=== PATIENT | female | born 1960 | race American Indian/Alaskan Native ===

== ENCOUNTER 2020-01-05 00:14 | Emergency (ER) | payer MEDICARE ==
[2020-01-05 01:40] LABS: Basophils # (Auto) 0.1 K/mm3 (0.0-0.1); Basophils % (Auto) 0.8 % (0.0-1.8); Eosinophils # (Auto) 0.3 K/mm3 (0.0-0.4); Eosinophils % (Auto) 4.6 % (0.0-4.3); Hemoglobin 14.2 gm/dl (10.1-14.3); Lymphocytes # (Auto) 2.7 K/mm3 (1.2-5.4); Lymphocytes % (Auto) 40.9 % (13.4-35.0); Mean Corpuscular HGB Conc 36 % (30-34); Mean Corpuscular Volume 97 fl (79-97); Monocytes # (Auto) 0.5 K/mm3 (0.0-0.8); Monocytes % (Auto) 6.8 % (0.0-7.3); Platelet Count 163 K/mm3 (140-440); Red Blood Count 4.11 M/mm3 (3.65-5.03); Red Cell Distribution Width 13.7 % (13.2-15.2)
[2020-01-05 02:05] LABS: Alanine Aminotransferase 11 units/L (7-56); Albumin 3.9 g/dL (3.9-5); BUN/Creatinine Ratio 21; Blood Urea Nitrogen 15 mg/dL (7-17); Calcium 8.9 mg/dL (8.4-10.2); Hemolysis Index 14
--- NOTE | 2020-01-05 02:26 | Emergency Department Report ---
ED Abdominal Pain HPI - General Chief Complaint: Abdominal Pain Stated Complaint: BLOOD IN URINE Time Seen by Provider: 01/05/20 02:22 Source: patient, EMS Mode of arrival: Wheelchair Limitations: No Limitations - History of Present Illness Initial Comments: Patient is a 60-year-old female that presents emergency room with complaints of abdominal pain and blood in her urine. Patient states she went to urgent care today and they sent her here for evaluation. Patient states that the pain in the blood started yesterday morning. Patient states that the pain is worsening. Patient states the abdominal pain is a 10 out of 10. Patient denies fever. Patient denies chills. Patient denies dysuria. Patient denies back pain. Patient states she has had a partial hysterectomy, kidney stones and gallstones. MD Complaint: abdominal pain -: Sudden Location: LLQ, RLQ Radiation: none Migration to: no migration Severity: severe Severity scale (0 -10): 10 Quality: stabbing Improves With: rest Worsens With: movement Associated Symptoms: denies: nausea, vomiting, diarrhea, fever, chills, constipation, dysuria, hematemesis, hematochezia, melena, hematuria, syncope - Related Data LMP (females 10-50): unknown Previous Rx's Medication Instructions Recorded Last Taken Type Sulfamethoxazole/Trimethoprim 1 each PO BID 10 Days #20 tablet 01/05/20 Unknown Rx [Bactrim DS TAB] Allergies Allergy/AdvReac Type Severity Reaction Status Date / Time ibuprofen [From Motrin] Allergy Swelling Verified 01/05/20 00:47 ED Review of Systems ROS: Stated complaint: BLOOD IN URINE Other details as noted in HPI Constitutional: denies: chills, fever Eyes: denies: eye pain, eye discharge, vision change ENT: denies: ear pain, throat pain Respiratory: denies: cough, shortness of breath, wheezing Cardiovascular: denies: chest pain, palpitations Endocrine: no symptoms reported Gastrointestinal: abdominal pain. denies: nausea, diarrhea Genitourinary: hematuria. denies: urgency, dysuria, discharge Musculoskeletal: denies: back pain, joint swelling, arthralgia Skin: denies: rash, lesions Neurological: denies: headache, weakness, paresthesias Psychiatric: denies: anxiety, depression Hematological/Lymphatic: denies: easy bleeding, easy bruising ED Past Medical Hx - Past Medical History Previous Medical History?: Yes Hx Hypertension: Yes Hx Seizures: Yes Hx Psychiatric Treatment: Yes (bipolar, schizophrenia) Hx HIV: Yes - Surgical History Past Surgical History?: Yes Additional Surgical History: partial hysterectomy 1987. kidney stone. gallstone. L foot sx x6 - Family History Family history: no significant - Social History Smoking Status: Light Tobacco Smoker Substance Use Type: None - Medications Home Medications: Home Medications Medication Instructions Recorded Confirmed Last Taken Type Sulfamethoxazole/Trimethoprim 1 each PO BID 10 Days #20 tablet 01/05/20 Unknown Rx [Bactrim DS TAB] ED Physical Exam - General Limitations: No Limitations General appearance: alert, in no apparent distress - Head Head exam: Present: atraumatic, normocephalic - Eye Eye exam: Present: normal appearance - ENT ENT exam: Present: mucous membranes moist - Neck Neck exam: Present: normal inspection - Respiratory Respiratory exam: Present: normal lung sounds bilaterally. Absent: respiratory distress - Cardiovascular Cardiovascular Exam: Present: regular rate, normal rhythm. Absent: systolic murmur, diastolic murmur, rubs, gallop - GI/Abdominal GI/Abdominal exam: Present: soft, tenderness (Bilateral lower quadrant tenderness), normal bowel sounds - Extremities Exam Extremities exam: Present: normal inspection - Back Exam Back exam: Present: normal inspection - Neurological Exam Neurological exam: Present: alert, oriented X3 - Psychiatric Psychiatric exam: Present: normal affect, normal mood - Skin Skin exam: Present: warm, dry, intact, normal color. Absent: rash ED Course Vital Signs 01/05/20 01/05/20 00:20 06:01 Temperature 98.3 F Pulse Rate 60 60 Respiratory 19 16 Rate Blood Pressure 127/67 Blood Pressure 138/74 [Right] O2 Sat by Pulse 95 97 Oximetry - Reevaluation(s) Reevaluation #1: I discussed all results and clinical findings with patient. I discussed plan of care with patient. Patient agrees with plan of care. Patient is stable for discharge. Patient will be discharged home. Patient given discharge instruc tions. Patient voiced understanding of discharge instructions. 01/05/20 06:07 ED Medical Decision Making - Lab Data Result diagrams: 01/05/20 01:21 01/05/20 01:21 - Radiology Data Radiology results: report reviewed CT of the abdomen and pelvis with contrast INDICATION: Abdominal pain and hematuria COMPARISON: None FINDINGS: There is slight dependent basilar atelectasis. Gallbladder has been removed. No biliary tree dilation. Liver, spleen, pancreas, adrenal glands and kidneys all appear normal. No fluid or adenopathy in the upper abdomen. No kidney stones or evidence of ureteral obstruction. CT of the pelvis shows a small umbilical hernia containing fat. Appendix is seen and is normal. Uterus has been removed. No pelvic fluid or adenopathy. No diverticulosis or diverticulitis. No bowel obstruction is seen. No significant skeletal abnormality. IMPRESSION: Negative study. No inflammatory process, kidney stones or renal mass. - Medical Decision Making Patient is a 60-year-old female that presents emergency room with lower ab dominal pain and hematuria. Patient found to have a UTI. The rest of the patient's labs are unremarkable. Patient CT was negative for acute findings. Patient stable for discharge. Patient discharged home. Patient discharged home with prescriptions for UTI. - Differential Diagnosis UTI, hematuria, abdominal pain Critical care attestation.: If time is entered above; I have spent that time in minutes in the direct care of this critically ill patient, excluding procedure time. ED Disposition Clinical Impression: Abdominal pain Qualifiers: Abdominal location: lower abdomen, unspecified Qualified Code(s): R10.30 - Lower abdominal pain, unspecified Hematuria Qualifiers: Hematuria type: gross Qualified Code(s): R31.0 - Gross hematuria UTI (urinary tract infection) Qualifiers: Urinary tract infection type: acute cystitis Hematuria presence: with hematuria Qualified Code(s): N30.01 - Acute cystitis with hematuria Disposition: TO HOME OR SELFCARE Is pt being admited?: No Does the pt Need Aspirin: No Condition: Stable Instructions: Urinary Tract Infection in Women (ED), Abdominal Pain (ED) Additional Instructions: Patient to follow-up with primary care in 2 to 3 days. Patient to follow-up with [facility] in 2 to 3 days. Patient to follow-up with urologist in 2 to 3 days. Patient to rest. Patient to increase water. Patient to take Tylenol as needed for pain. Patient to take meds as directed. Patient to return to the ER if condition worsens, changes or new symptoms arise. Prescriptions: Sulfamethoxazole/Trimethoprim [Bactrim DS TAB] 1 each PO BID 10 Days #20 tablet Referrals: GIORGIO PEREZ MD [Primary Care Provider] - 2-3 Days ASPEN ESPINOZA MD [Staff Physician] - 2-3 Days MASOUD ARZOLA MD [Staff Physician] - 2-3 Days ANNE DOMINGUEZ MD [Staff Physician] - 2-3 Days Time of Disposition: 06:10
[2020-01-05 02:44] LABS: Bacteria,Urine 1+ /HPF (Negative); Bilirubin,Urine NEG (Negative); Blood,Urine SM (Negative); Color,Urine Yellow (Yellow); Mucus,Urine FEW /HPF; Protein,Urine <15 mg/dL mg/dL (Negative)
[2020-01-05 06:02] VITALS: BP 138/74
--- NOTE | 2020-01-05 06:22 | Cat Scan Report ---
CT of the abdomen and pelvis with contrast INDICATION: Abdominal pain and hematuria COMPARISON: None FINDINGS: There is slight dependent basilar atelectasis. Gallbladder has been removed. No biliary siva e dilation. Liver, spleen, pancreas, adrenal glands and kidneys all appear normal. No fluid or adenop athy in the upper abdomen. No kidney stones or evidence of ureteral obstruction. CT of the pelvis shows a small umbilical hernia containing fat. Appendix is seen and is normal. Uteru s has been removed. No pelvic fluid or adenopathy. No diverticulosis or diverticulitis. No bowel obst ruction is seen. No significant skeletal abnormality. IMPRESSION: Negative study. No inflammatory process, kidney stones or renal mass. Automated exposure control was utilized to diminish radiation dose. Signer Name: Marocs Mandujano MD Signed: 01/05/2020 6:18 AM Workstation Name: [id number]
== END 2020-01-05 06:48 | disposition home or self-care (01) ==
LOC: ED 00:14
DX: N39.0 Urinary tract infection, site not specified (principal); R31.9 Hematuria, unspecified; I10 Essential (primary) hypertension; G40.909 Epilepsy, unspecified, not intractable, without status epilepticus; F20.9 Schizophrenia, unspecified; F31.9 Bipolar disorder, unspecified; F17.200 Nicotine dependence, unspecified, uncomplicated; Z21 Asymptomatic human immunodeficiency virus [HIV] infection status; Z90.710 Acquired absence of both cervix and uterus; Z98.890 Other specified postprocedural states; Z79.899 Other long term (current) drug therapy; Z88.6 Allergy status to analgesic agent
CPT/HCPCS: 36415; 74177; 80053; 81001; 85025; 87086; 99284; Q9967

== ENCOUNTER 2020-02-21 16:30 | Emergency (ER) | payer MEDICARE ==
--- NOTE | 2020-02-21 17:01 | Emergency Department Report ---
ED General Adult HPI - General Chief complaint: Dyspnea/Respdistress Stated complaint: VERO Time Seen by Provider: 02/21/20 16:58 Source: patient, EMS ( EMS documentation not available at time of chart dictation ), RN notes reviewed Mode of arrival: Stretcher Limitations: No Limitations - History of Present Illness Initial comments: Please note that for the patient's entire history and physical examination, I had on complete personal protective equipment. The patient is a 60-year-old female. She is not known to myself previously. She has a history of HIV, on antiviral therapy, reports a CD4 count in the 100s, and a viral load of 1000. She does not know if she has had any AIDS defining illnesses. Also has a history of hypertension and high cholesterol, and may have a history of COPD, asthma, or emphysema; she is not certain. She is not on home oxygen. She presents to the ER today via EMS with a complaint of shortness of breath. This is associated with a dry cough. She has chronic two-pillow orthopnea. She denies recent travel, surgeries, and immobilizations. She has been self isolating and self quarantining. There is no physical pain in her chest or abdomen. She has a mild frontal sinus headache, present for a few days, which is not sudden or thunderclap in nature, not maximal in intensity, and not described as the worst headache of her life. There is no documented fever, no neck pain or neck stiffness, no abdominal pain, no chest pain, no urinary symptom, and there is no focal extremity weakness and or numbness. Her shortness of breath worsens with physical exertion, and it decreases with rest. -: Gradual, days(s) Improves with: rest Worsens with: movement Associated Symptoms: other (See history of present illness) - Related Data Previous Rx's Medication Instructions Recorded Last Taken Type Sulfamethoxazole/Trimethoprim 1 each PO BID 10 Days #20 tablet 01/05/20 Unknown Rx [Bactrim DS TAB] Acetaminophen [Non-Aspirin Extra 500 mg PO Q6HR PRN #30 tablet 02/21/20 Unknown Rx Strength] Albuterol Sulfate [Proair 90 mcg IH Q4HR PRN #2 aer.[email or web address] 02/21/20 Unknown Rx Respiclick] predniSONE [Deltasone] 40 mg PO QDAY #8 tab 04/20/20 Unknown Rx Allergies Allergy/AdvReac Type Severity Reaction Status Date / Time ibuprofen [From Motrin] Allergy Swelling Verified 01/05/20 00:47 ED Review of Systems ROS: Stated complaint: VERO Other details as noted in HPI Comment: As per history of present illness ED Past Medical Hx - Past Medical History Hx Hypertension: Yes Hx Seizures: Yes Hx Psychiatric Treatment: Yes (bipolar, schizophrenia) Hx HIV: Yes - Surgical History Additional Surgical History: partial hysterectomy 1987. kidney stone. gallstone. L foot sx x6 - Social History Smoking Status: Light Tobacco Smoker Substance Use Type: None - Medications Home Medications: Home Medications Medication Instructions Recorded Confirmed Last Taken Type Sulfamethoxazole/Trimethoprim 1 each PO BID 10 Days #20 tablet 01/05/20 Unknown Rx [Bactrim DS TAB] Acetaminophen [Non-Aspirin Extra 500 mg PO Q6HR PRN #30 tablet 02/21/20 Unknown Rx Strength] Albuterol Sulfate [Proair 90 mcg IH Q4HR PRN #2 aer.[email or web address] 02/21/20 Unknown Rx Respiclick] predniSONE [Deltasone] 40 mg PO QDAY #8 tab 02/21/20 Unknown Rx ED Physical Exam - General Limitations: No Limitations General appearance: alert, in no apparent distress - Head Head exam: Present: atraumatic, normocephalic - Eye Eye exam: Present: normal appearance, EOMI, other (Visual acuity intact to finger counting, color perception, reading at a close distance). Absent: nystagmus - ENT ENT exam: Present: normal exam, normal orophraynx, normal external ear exam, other - Neck Neck exam: Present: normal inspection, full ROM. Absent: tenderness, meningismus - Respiratory Respiratory exam: Present: rhonchi (Faint rhonchi noted in the right lower lung robert.Otherwise, lungs are clear). Absent: respiratory distress, wheezes, rales, stridor - Cardiovascular Cardiovascular Exam: Present: regular rate, normal rhythm, normal heart sounds. Absent: bradycardia, tachycardia, irregular rhythm, systolic murmur, diastolic murmur, rubs, gallop - GI/Abdominal GI/Abdominal exam: Present: soft. Absent: distended, tenderness, guarding, rebound, rigid, pulsatile mass - Extremities Exam Extremities exam: Present: normal inspection, full ROM, other (2+ pulses noted in the bilateral upper and lower extremities. There is no palpable cord. negative Homans sign. Muscular compartments are soft. The pelvis is stable.). Absent: pedal edema, calf tenderness - Back Exam Back exam: Present: normal inspection, full ROM. Absent: tenderness, CVA tenderness (R), CVA tenderness (L), paraspinal tenderness, vertebral tenderness - Neurological Exam Neurological exam: Present: alert, oriented X3, normal gait, other (There is no facial droop. The tongue is midline. Extraocular movements are intact bilaterally. There is 5 out of 5 strength in bilateral upper and lower extremities. Sensation is intact to light touch bilateral upper and lower extremities. There is no past-pointing. There is no pronator drift. There is normal [id number]. There is a normal gait.). Absent: motor sensory deficit - Psychiatric Psychiatric exam: Present: normal affect, normal mood - Skin Skin exam: Present: warm, dry, intact, normal color. Absent: rash ED Course Vital Signs 02/21/20 02/21/20 02/21/20 16:56 17:00 17:06 Temperature 98.3 F Pulse Rate 61 58 L 60 Pulse Rate [ Anterior Bilateral Throughout] Respiratory 13 13 26 H Rate Respiratory Rate [Anterior Bilateral Throughout] Blood Pressure 135/72 125/67 Blood Pressure [Right] O2 Sat by Pulse 99 97 98 Oximetry 02/21/20 02/21/20 02/21/20 17:10 17:16 17:31 Temperature Pulse Rate 65 Pulse Rate [ Anterior Bilateral Throughout] Respiratory 15 Rate Respiratory Rate [Anterior Bilateral Throughout] Blood Pressure 155/91 155/91 Blood Pressure [Right] O2 Sat by Pulse 98 100 100 Oximetry 02/21/20 02/21/20 02/21/20 17:45 18:00 18:15 Temperature Pulse Rate 54 L 58 L Pulse Rate [ Anterior Bilateral Throughout] Respiratory 14 11 L Rate Respiratory Rate [Anterior Bilateral Throughout] Blood Pressure 158/89 150/90 157/98 Blood Pressure [Right] O2 Sat by Pulse 94 97 97 Oximetry 02/21/20 02/21/20 02/21/20 18:22 18:30 20:24 Temperature 98.2 F Pulse Rate 53 L 60 Pulse Rate [ 65 Anterior Bilateral Throughout] Respiratory 13 20 Rate Respiratory 19 Rate [Anterior Bilateral Throughout] Blood Pressure 155/91 Blood Pressure 150/88 [Right] O2 Sat by Pulse 98 Oximetry - Reevaluation(s) Reevaluation #1: 02/21/20 17:37 Differential diagnosis, including but not limited to: Pneumonia, reactive airway disease, pulmonary embolism, novel coronavirus Assessment and plan: 60-year-old female, with focal rhonchi in her right lower lung field, with a complaint of painless shortness of breath, she is given a trial of ambulation, and while she does not desaturate, becomes symptomatic. She indicates that she is self isolating. Patient is placed on isolation precautions. She will be given albuterol, and acetaminophen/Reglan. However, the patient does not desaturate, and she does not become hypoxic. Has a GCS of 15, with NIH score of 0, and walks with a steady gait. Neurologic exam benign and unremarkable, headache history most likely consistent with sinus headache, she does not offer any historical features that would require emergent neuroimaging at this time. We will treat her symptoms, and obtain CT scan of the chest to evaluate for pulmonary embolism, pneumonia, versus other pulmonary pathology. X-ray of the chest on my interpretation is unremarkable for acute findings. 02/21/20 22:41 Reevaluation #2: 02/21/20 19:13 Vital signs unremarkable. Screening laboratory studies, including laboratory studies for risk ratification for cytokine storm were unremarkable, CT scan of the chest negative for pulmonary infiltrate and/or pneumonia. Patient will be discharged with as needed albuterol, steroid burst, instructions to follow-up with outpatient primary care doctor. Patient walking around without difficulty, vital signs remained stable, the patient is suitable for trial of outpatient management. 02/21/20 22:41 ED Medical Decision Making - Lab Data Result diagrams: 02/21/20 17:39 02/21/20 17:39 Vital Signs 02/21/20 02/21/20 02/21/20 16:56 17:00 17:06 Temperature 98.3 F Pulse Rate 61 58 L 60 Pulse Rate [ Anterior Bilateral Throughout] Respiratory 13 13 26 H Rate Respiratory Rate [Anterior Bilateral Throughout] Blood Pressure 135/72 125/67 O2 Sat by Pulse 99 97 98 Oximetry 02/21/20 02/21/20 02/21/20 17:10 17:16 17:31 Temperature Pulse Rate 65 Pulse Rate [ Anterior Bilateral Throughout] Respiratory 15 Rate Respiratory Rate [Anterior Bilateral Throughout] Blood Pressure 155/91 155/91 O2 Sat by Pulse 98 100 100 Oximetry 02/21/20 02/21/20 02/21/20 17:45 18:00 18:15 Temperature Pulse Rate 54 L 58 L Pulse Rate [ Anterior Bilateral Throughout] Respiratory 14 11 L Rate Respiratory Rate [Anterior Bilateral Throughout] Blood Pressure 158/89 150/90 157/98 O2 Sat by Pulse 94 97 97 Oximetry 02/21/20 02/21/20 18:22 18:30 Temperature Pulse Rate 53 L Pulse Rate [ 65 Anterior Bilateral Throughout] Respiratory 13 Rate Respiratory 19 Rate [Anterior Bilateral Throughout] Blood Pressure 155/91 O2 Sat by Pulse Oximetry Lab Results 02/21/20 02/21/20 02/21/20 Range/Units 17:39 17:39 17:39 WBC 7.8 (4.5-11.0) K/mm3 RBC 4.32 (3.65-5.03) M/mm3 Hgb 15.0 H (10.1-14.3) gm/dl Hct 42.4 (30.3-42.9) % MCV 98 H (79-97) fl MCH 35 H (28-32) pg MCHC 35 H (30-34) % RDW 13.9 (13.2-15.2) % Plt Count 195 (140-440) K/mm3 Lymph % (Auto) 38.2 H (13.4-35.0) % [place] % (Auto) 9.0 H (0.0-7.3) % Eos % (Auto) 2.7 (0.0-4.3) % Baso % (Auto) 0.8 (0.0-1.8) % Lymph # 3.0 (1.2-5.4) K/mm3 [place] # 0.7 (0.0-0.8) K/mm3 Eos # 0.2 (0.0-0.4) K/mm3 Baso # 0.1 (0.0-0.1) K/mm3 Seg Neutrophils % 49.3 (40.0-70.0) % Seg Neutrophils # 3.8 (1.8-7.7) K/mm3 PT 14.7 (12.2-14.9) Sec. INR 1.13 (0.87-1.13) APTT 25.8 (24.2-36.6) Sec. D-Dimer 135.00 (0-234) ng/mlDDU Sodium 137 (137-145) mmol/L Potassium 3.6 (3.6-5.0) mmol/L Chloride 98.8 (98-107) mmol/L Carbon Dioxide 27 (22-30) mmol/L Anion Gap 15 mmol/L BUN 14 (7-17) mg/dL Creatinine 1.0 (0.7-1.2) mg/dL Estimated GFR > 60 ml/min BUN/Creatinine Ratio 14 % Glucose 72 (65-100) mg/dL Calcium 9.5 (8.4-10.2) mg/dL Magnesium 1.90 (1.7-2.3) mg/dL Ferritin (13.0-400.0) ng/mL Total Bilirubin 0.40 (0.1-1.2) mg/dL AST 18 (5-40) units/L ALT 16 (7-56) units/L Alkaline Phosphatase 108 (35-129) units/L Lactate Dehydrogenase 183 H (91-180) units/L Total Creatine Kinase 149 H (30-135) units/L Troponin T < 0.010 (0.00-0.029) ng/mL C-Reactive Protein 1.30 (0.00-1.30) mg/dL NT-Pro-B Natriuret Pep 120.3 (0-900) pg/mL Total Protein 9.2 H (6.3-8.2) g/dL Albumin 4.0 (3.9-5) g/dL Albumin/Globulin Ratio 0.8 % /20/20 Range/Units 17:39 WBC (4.5-11.0) K/mm3 RBC (3.65-5.03) M/mm3 Hgb (10.1-14.3) gm/dl Hct (30.3-42.9) % MCV (79-97) fl MCH (28-32) pg MCHC (30-34) % RDW (13.2-15.2) % Plt Count (140-440) K/mm3 Lymph % (Auto) (13.4-35.0) % [place] % (Auto) (0.0-7.3) % Eos % (Auto) (0.0-4.3) % Baso % (Auto) (0.0-1.8) % Lymph # (1.2-5.4) K/mm3 [place] # (0.0-0.8) K/mm3 Eos # (0.0-0.4) K/mm3 Baso # (0.0-0.1) K/mm3 Seg Neutrophils % (40.0-70.0) % Seg Neutrophils # (1.8-7.7) K/mm3 PT (12.2-14.9) Sec. INR (0.87-1.13) APTT (24.2-36.6) Sec. D-Dimer (0-234) ng/mlDDU Sodium (137-145) mmol/L Potassium (3.6-5.0) mmol/L Chloride (98-107) mmol/L Carbon Dioxide (22-30) mmol/L Anion Gap mmol/L BUN (7-17) mg/dL Creatinine (0.7-1.2) mg/dL Estimated GFR ml/min BUN/Creatinine Ratio % Glucose (65-100) mg/dL Calcium (8.4-10.2) mg/dL Magnesium (1.7-2.3) mg/dL Ferritin 194.5 (13.0-400.0) ng/mL Total Bilirubin (0.1-1.2) mg/dL AST (5-40) units/L ALT (7-56) units/L Alkaline Phosphatase (35-129) units/L Lactate Dehydrogenase (91-180) units/L Total Creatine Kinase (30-135) units/L Troponin T (0.00-0.029) ng/mL C-Reactive Protein (0.00-1.30) mg/dL NT-Pro-B Natriuret Pep (0-900) pg/mL Total Protein (6.3-8.2) g/dL Albumin (3.9-5) g/dL Albumin/Globulin Ratio % - EKG Data -: EKG Interpreted by Ne EKG shows normal: sinus rhythm Rate: normal - EKG Data When compared to previous EKG there are: previous EKG unavailable 02/21/20 18:05 Sinus rhythm, bradycardia, 54 bpm, normal axis, normal intervals, premature atrial complexes, no prior for comparison, T wave abnormality aVL, the EKG is abnormal, it is not a STEMI - Radiology Data Radiology results: pending, report reviewed, image reviewed X-ray of the chest is negative for acute disease Critical care attestation.: If time is entered above; I have spent that time in minutes in the direct care of this critically ill patient, excluding procedure time. ED Disposition Clinical Impression: Suspected 2019 novel coronavirus infection Dyspnea Qualifiers: Dyspnea type: other forms of dyspnea Qualified Code(s): R06.09 - Other forms of dyspnea Disposition: DC-01 TO HOME OR SELFCARE Is pt being admited?: No Does the pt Need Aspirin: No Condition: Stable Instructions: COVID-19, Reactive Airways Disease (ED) Additional Instructions: Please continue current outpatient medications, with the exception of metformin. If patient takes this medication, please do not take it for the next 48 hours. Take the medications as directed and needed, self isolate, self quarantine, make certain to wash hands often and frequently, do not touch hands to face, eyes, mouth, and do not interact or leave the house with other people. Please follow-up with your primary care doctor or infectious disease specialist within the next 3 to 4 days for a repeat checkup/evaluation. Drink at least 4 cups of water per day indefinitely. Return to the emergency room right away with new, worsened or different symptoms, or symptoms not present on the initial emergency room evaluation. Screening laboratory studies today were unremarkable for acute disease, x-ray of the chest, and CT scan of the chest were negative for pneumonia, did not suggest viral infection, and also did not show a pulmonary embolism/blood clot in the lung. Symptoms most likely coming from reactive airway disease/COPD/asthma patient may take the Tylenol medication as needed for headache Prescriptions: predniSONE [Deltasone] 40 mg PO QDAY #8 tab Acetaminophen [Non-Aspirin Extra Strength] 500 mg PO Q6HR PRN #30 tablet PRN Reason: Pain , Severe (7-10) Albuterol Sulfate [Proair Respiclick] 90 mcg IH Q4HR PRN #2 aer.pow.ba PRN Reason: Wheezing Referrals: ASPEN ESPINOZA MD [Staff Physician] - 3-5 Days [facility] [Provider Group] - 3-5 Days
[2020-02-21] MEDS ORDERED: ACETAMINOPHEN 325 MG TAB PO ONE (17:33)
[2020-02-21] MEDS ORDERED: METOCLOPRAMIDE 10 MG/2 ML INJ IV ONE (17:33)
[2020-02-21] MEDS ORDERED: ALBUTEROL 2.5 MG/3 ML NEBU IH ONE (17:33)
[2020-02-21] MEDS ORDERED: SODIUM CHLORIDE 0.9% 250ML 250 ML IV ONE (17:33)
--- NOTE | 2020-02-21 17:40 | XRay Report ---
CHEST 1 VIEW INDICATION / CLINICAL INFORMATION: dyspnea. COMPARISON: None available. FINDINGS: SUPPORT DEVICES: None. HEART / MEDIASTINUM: No significant abnormality. LUNGS / PLEURA: No significant pulmonary or pleural abnormality. No pneumothorax. IMPRESSION: No acute finding. Signer Name: Timo Zaman MD Signed: 02/21/2020 5:35 PM Workstation Name: [id number]
[2020-02-21 18:01] LABS: Basophils # (Auto) 0.1 K/mm3 (0.0-0.1); Basophils % (Auto) 0.8 % (0.0-1.8); Eosinophils # (Auto) 0.2 K/mm3 (0.0-0.4); Eosinophils % (Auto) 2.7 % (0.0-4.3); Hematocrit 42.4 % (30.3-42.9); Lymphocytes % (Auto) 38.2 % (13.4-35.0); Mean Corpuscular HGB Conc 35 % (30-34); Mean Corpuscular Volume 98 fl (79-97); Monocytes # (Auto) 0.7 K/mm3 (0.0-0.8); Platelet Count 195 K/mm3 (140-440); Red Blood Count 4.32 M/mm3 (3.65-5.03); Red Cell Distribution Width 13.9 % (13.2-15.2)
[2020-02-21 18:10] LABS: INR 1.13 (0.87-1.13)
[2020-02-21 18:11] LABS: Partial Thromboplastin Time 25.8 Sec. (24.2-36.6)
[2020-02-21 18:19] LABS: Alanine Aminotransferase 16 units/L (7-56); BUN/Creatinine Ratio 14; Blood Urea Nitrogen 14 mg/dL (7-17); Calcium 9.5 mg/dL (8.4-10.2); Hemolysis Index 3
--- NOTE | 2020-02-21 19:10 | Cat Scan Report ---
CT ANGIOGRAPHY OF THE CHEST WITH INTRAVENOUS CONTRAST AND MULTIPLANAR MIP RECONSTRUCTIONS INDICATION / CLINICAL INFORMATION: Shortness of breath; pneumonia versus PTE versus COVID-19. TECHNIQUE: Axial CT images were obtained after injection of 100 cc Omnipaque 350 IV contrast using CTA protocol. 3 plane MIP / 3D reconstructions were produced. All CT scans at this location are performed using CT dose reduction for ALARA by means of automated exposure control. COMPARISON: None available. FINDINGS: There is good opacification of the pulmonary arterial system bilaterally without intraluminal filling defect to suggest acute PTE. The thoracic aorta is normal in caliber without dissection. No signific ant coronary artery calcification is present. The tracheobronchial tree is normal. There is minimal scarring in both upper lung zones. No acute par enchymal or pleural abnormality is seen. There is no evidence of adenopathy. The gallbladder is surgically absent. The visualized upper abdomen is otherwise normal. There is mild thoracic spondylosis. IMPRESSION: No acute abnormality. There is no evidence of acute PTE or pneumonia. Signer Name: Gustabo Barraza MD Signed: 02/21/2020 7:05 PM Workstation Name: [id number]
[2020-02-21] MEDS ORDERED: predniSONE 20 MG TAB PO ONE (19:14)
[2020-02-21 20:24] VITALS: BP 150/88
== END 2020-02-21 20:25 | disposition home or self-care (01) ==
LOC: ED 16:30
DX: R06.00 Dyspnea, unspecified (principal); I10 Essential (primary) hypertension; R56.9 Unspecified convulsions; F31.9 Bipolar disorder, unspecified; F20.9 Schizophrenia, unspecified; F17.200 Nicotine dependence, unspecified, uncomplicated; Z98.890 Other specified postprocedural states; Z79.899 Other long term (current) drug therapy; Z88.8 Allergy status to other drugs, medicaments and biological substances
CPT/HCPCS: 36415; 71045; 71275; 80053; 82550; 82728; 83615; 83735; 83880; 84484; 85025; 85379; 85610; 85730; 86140; 93005; 94640; 96374; 99285; J2765; J7050; J7512; Q9967; 94644